=== PATIENT | male | born 1940 | race Caucasian/White ===

== ENCOUNTER 2025-07-18 09:48 | Emergency (ER) | payer MEDICARE, BC, SELFPAY ==
[2025-07-18 09:51] VITALS: BP 137/66
[2025-07-18 10:04] VITALS: BMI 30.6
[2025-07-18 10:12] VITALS: BP 127/72
--- NOTE | 2025-07-18 10:26 | ED.GENMED ---
History of Present Illness
General
Chief Complaint: Weakness
Source: patient, spouse and family
Exam Limitations: none
Time Seen by Provider: 07/18/25 10:00
Nursing documentation reviewed up to this point in time: agreed with
History of Present Illness
History of Present Illness:
Patient patient diagnosed with metastatic bladder cancer in May 2025, status post second immunotherapy 9 days ago, currently visiting from [place], presents to ED secondary to worsening generalized weakness with decreased appetite over the past
24 hours. Of note, 6 days ago, secondary to painful urination, patient was seen in urgent care center, where he was diagnosed with UTI and was started on amoxicillin. Since then, he has received phone call informing him that his urine culture
revealed that his antibiotic was sensitive to the organism. Patient does report resolution of painful urination since being on antibiotics. Patient is on day 5 of 7-day treatment. Patient is reporting continuous, nonproductive intermittent cough,
along with a rash, which had been told by his oncologist that those symptoms are secondary to immunotherapy. However, there is concern for potential pneumonia from treatment. As such, he went back to urgent care center yesterday and received normal
chest x-ray. In addition, patient with history of CAD with angioplasty 40 years ago, reports chest heaviness sensation last night, which resolved after 2 doses of sublingual nitroglycerin. Chest pain has not returned since then. Patient is
scheduled to go back home in 2 days
Review of Systems
Review of Systems
Allergies reviewed?: Yes
All Other Systems: ROS reviewed and negative except as documented in HPI and ROS
Constitutional: Reports no symptoms; Denies fever
EENT: Reports no symptoms
Respiratory: Reports cough; Denies trouble breathing
Cardiac: Reports chest pain; Denies diaphoresis, palpitations or syncope
ABD/GI: Reports no symptoms; Denies vomiting or diarrhea
: Reports no symptoms
Musculoskeletal: Reports no symptoms
Skin: Reports no symptoms
Neurological: Reports weakness; Denies dizzy or headache
Phy Exam
Physical Exam
Physical Exam:
Physical Exam
General: mild distress, not acutely ill. afebrile. weak appearing
Head: nc/at. eomi
Neck: supple. no meningeal signs.
Heart: s1/s2 regular rate and rhythm
Lungs: no acute respiratory distress. clear bilaterally
Abdomen: normal bowel sounds. not tender.
Neuro: alert and oriented x 3. no focal neurological deficits
Skin: no rash
Psychiatric: well kept. interactive and cooperative
Extremities: no edema. no calf tenderness.
Course
Orders/Labs/Results
Orders:
Orders
07/18/25 09:56
Electrocardiogram (*1) Urgent
Reason for Study: Chest Pain
EKG- Treatment ONCE
07/18/25 10:34
COVID-19 Antigen Urgent
Source: Nasal Swab
Complete Blood Count/With Diff Urgent
Comprehensive Metabolic Panel Urgent
Lactate Level [Lactic Acid] Urgent
Magnesium Urgent
TSH Urgent
Troponin I Urgent
Blood Culture Q30M
JAROCHO Source: Blood/Venous
Specimen Description:
Influenza A+B Rapid Molecular Urgent
JAROCHO Source: Nasal Swab
Specimen Description:
07/18/25 10:37
Diphenhydramine [Benadryl] 25 mg PO NOW STA
07/18/25 10:38
0.9% Sodium Chloride 500 ml [Nss] 500 ml IV BOLUS
07/18/25 10:51
Blood Culture Q30M
JAR[facility] Source: Blood/Venous
Specimen Description:
Respiratory Syncytial Virus Urgent
JAROCHO Source: Nasal Swab
Specimen Description:
Date Specimen was Collected: 07/18/25
Time Specimen was Collected: 10:33
07/18/25 12:30
Magnesium Oxide 400 mg PO NOW STA
Potassium Chloride [KCl] 40 meq PO NOW STA
07/18/25 12:43
0.9% Sodium Chloride 500 ml [Nss] 500 ml IV BOLUS
Abnormal Lab Results
07/18/25
10:34
WBC 4.4 L 10^3/uL
(4.8-10.8)
RBC 3.82 L 10^6/uL
(4.70-6.10)
Hgb 12.9 L g/dL
(13.0-18.0)
Hct 36.4 L %
(39.0-52.0)
MCV 95.3 H fL
(80.0-94.0)
MCH 33.8 H pg
(27.0-31.0)
RDW 15.5 H %
(11.5-14.5)
Abs Immat Gran (auto) 0.1 H 10^3/uL
(0-0.05)
Absolute Lymphs (auto) 0.5 L 10^3/uL
(1.2-3.4)
Absolute Monos (auto) 0.7 H 10^3/uL
(0.1-0.6)
Immature Gran % 2.7 H %
(0-0.5)
Lymphocytes % 11.0 L %
(20.5-51.1)
Monocytes % 15.1 H %
(1.7-9.3)
Potassium 3.3 L mmol/L
(3.5-5.1)
Glucose 169 H mg/dl
(70-99)
Lactic Acid 3.6 H mmol/L
(0.7-2.0)
Magnesium 1.5 L mg/dl
(1.6-2.3)
AST 62 H U/L
(17-59)
ALT 52 H U/L
(0-50)
Total Protein 6.0 L g/dl
(6.3-8.2)
07/18/25 10:34
07/18/25 10:34
Vital Signs
Initial and Last Documented VS:
Initial Vital Signs
Temp Pulse Resp BP Pulse Ox
98 F 82 20 137/66 94
07/18/25 09:51 07/18/25 09:51 07/18/25 09:51 07/18/25 09:51 07/18/25 09:51
Last Documented Vital Signs
Temp Pulse Resp BP Pulse Ox
98 F 71 23 139/79 96
07/18/25 09:51 07/18/25 13:00 07/18/25 13:00 07/18/25 13:00 07/18/25 12:07
MDM/Problems Addressed
MDM/Problems Addressed:
Patient reports improvement in symptoms after IV hydration. Otherwise, patient remains afebrile, hemodynamically stable, and neurologically intact. Blood work reviewed and discussed with patient and family. Patient advised to modify diet along
with potassium/magnesium supplementation with [id number] medications, as well as close follow-up with his oncologist, as soon as he returns back home, to [place] in 2 days. Return precautions provided.
*Pulse Oximetry
SaO2: 94
Oxygen Mode of Delivery: Room air
Patient hypoxic: no
*EKG
Interpreted by ED Provider?: Yes
EKG Intrepretation Date: 07/18/25
Heart Rate: 81
Rate: normal
Rhythm: sinus
Mcdowell: normal axis
*Critical Care Note
Total Time (30-74mins, 75-104mins- exclusive of procedures): Not Applicable
ED Attending Note
-
Portions of this chart may have been created with voice recognition software.� Occasional wrong word or��sound alike� substitutions may have occurred due to the inherent limitations of voice recognition software.
Discharge Plan
Departure
Patient Disposition: Home (Routine Discharge)
Date of Disposition: 07/18/25
Time of Disposition: 13:25
Patient with high blood pressure during this ER visit?: Yes
Condition: Fair
Discharge Problem:
Weakness, Hypokalemia, Hypomagnesemia
Instructions: Hypokalemia, Generalized Weakness (DC), Hypomagnesemia, High-potassium diet
Referrals:
UNKNOWN - PT DOES,NOT KNOW [Family Provider]
Activity Restrictions/Additional Instructions:
As discussed, please follow-up with your oncologist, as soon as you return home this week. Please consider return to ED with worsening symptoms.
Interventions
Interventions:
*General Assessment Last Done: 07/18/25 09:51
*Neglect/Abuse Screening Last Done: 07/18/25 09:51
*ED COVID-19 Vaccine History Last Done: 07/18/25 10:04
*ED Influenza Vaccine History Last Done: 07/18/25 10:04
[facility] Fall Risk Assessment Tool Last Done: 07/18/25 10:06
*Risk Screen - Suicide (C-SSRS) Last Done: 07/18/25 13:44
*Nursing Disposition Last Done: 07/18/25 13:43
ED- Cardiac Assessment Last Done: 07/18/25 10:54
ED- Neurological Assessment Last Done: 07/18/25 10:54
ED- Pulmonary Assessment Last Done: 07/18/25 10:54
Discharge Date and Time
Discharge Date/Time: 07/18/25 13:44
Print Language: TURKISH
[2025-07-18] MEDS: BENADRYL 25 MG PO (10:44)
[2025-07-18] MEDS: NSS 500 IV ×2 (10:44→12:46)
[2025-07-18 10:47] LABS: Hematocrit 36.4 % (39.0-52.0); Hemoglobin 12.9 g/dL (13.0-18.0); Mean Corp Hgb Conc. 35.4 g/dL (33.0-37.0); Mean Corpuscular Volume 95.3 fL (80.0-94.0); Nucleated Red Blood Cells % 0.7 % (-); Platelet Count 162 10^3/uL (130-400); Red Cell Dist. Width 15.5 % (11.5-14.5)
[2025-07-18 11:00] VITALS: BP 136/85
[2025-07-18 11:11] LABS: COVID-19 Antigen Negative (Negative)
[2025-07-18 11:16] LABS: Troponin I 0.020 ng/ml
[2025-07-18 11:18] LABS: ALT (SGPT) 52 U/L (0-50); AST (SGOT) 62 U/L (17-59); Albumin 3.7 g/dl (3.5-5.0); Alkaline Phosphatase 108 U/L (38-126); Blood Urea Nitrogen 10 mg/dl (9-20); Calcium 8.5 mg/dl (8.4-10.2); Carbon Dioxide 26 mmol/L (22-30); Chloride 102 mmol/L (98-107); Estimated Creatinine Clearance 85 ml/min; Glucose 169 mg/dl (70-99); Magnesium 1.5 mg/dl (1.6-2.3); Potassium 3.3 mmol/L (3.5-5.1); Sodium 135 mmol/L (135-145); Total Protein 6.0 g/dl (6.3-8.2); eGFR > 60.00
[2025-07-18 12:05] VITALS: BP 132/77
[2025-07-18] MEDS: KCL 40 MEQ PO (12:40)
[2025-07-18] MEDS: MAGNESIUM OXIDE 400 MG PO (12:40)
[2025-07-18 13:00] VITALS: BP 139/79
[2025-07-18 15:52] LABS: TSH 1.84 uIU/ml (0.47-4.68)
== END 2025-07-18 13:44 | disposition home or self-care (01) ==
LOC: EMR 09:48
PROVIDERS: EMERGENCY PHYSICIAN Emergency Medicine
DX: R53.1 Weakness (principal); R07.89 Other chest pain; M79.89 Other specified soft tissue disorders; R05.9 Cough, unspecified; E83.42 Hypomagnesemia; E87.6 Hypokalemia; R21 Rash and other nonspecific skin eruption; Z11.52 Encounter for screening for COVID-19; N39.0 Urinary tract infection, site not specified; C67.9 Malignant neoplasm of bladder, unspecified; C79.9 Secondary malignant neoplasm of unspecified site; I48.91 Unspecified atrial fibrillation; I10 Essential (primary) hypertension; E78.5 Hyperlipidemia, unspecified; I25.10 Atherosclerotic heart disease of native coronary artery without angina pectoris; Z88.2 Allergy status to sulfonamides
CPT/HCPCS: 99284; 80053; 83605; 83735; 84443; 84484; 85025; 87040; 87502; 87807; 87811; 93005